=== PATIENT | male | born 1945 | race Caucasian/White ===

== ENCOUNTER 2018-12-28 07:52 | Day surgery (SDC) | payer OTHER ==
[2018-12-27 12:02] VITALS: BMI 27.6
[2018-12-28] MEDS ORDERED: DESFLURANE GAS 240 ML BOTTLE IH ONE (09:13)
[2018-12-28] MEDS ORDERED: SEVOFLURANE 250 ML BTL ONE (09:13)
[2018-12-28] MEDS ORDERED: DEXAMETHASONE SOD PHOSPHATE/PF 10 MG/ML SDV ONE (09:23)
[2018-12-28] MEDS ORDERED: ROPIVACAINE HCL 0.5% 30ML VIAL ONE (09:23)
--- NOTE | 2018-12-28 09:23 | HP ---
Satellite [facility] - Chief Complaint History of Present Illness: c/O Pain in right groin, has right inguinal hernia, incarcerated History Source: Patient Limitations to Obtaining History: No Limitations - Past Medical History Allergies/Adverse Reactions: Allergies Allergy/AdvReac Type Severity Reaction Status Date / Time No Known Drug Allergies Allergy Verified 12/28/18 08:51 Musculoskeletal: Yes: Other (S/P Bilateral knee replacement) - Current Medications Current Medications: Home Medications Medication Instructions Recorded Spencer Oil/Wadsworth-3 Fatty Acids 1 each PO TID #0 capsule 12/14/13 [Fish Oil 500 mg Softgel] Brimonidine Tartrate/Timolol 5 ml OU BID 12/27/18 [Combigan Eye Drops] Netarsudil Mesylate [Rhopressa] 2.5 ml OU HS 12/27/18 Multiple Supplements 12/28/18 Satellite Physical Exam - Physical Examination Vital Signs: Vital Signs Period Temp Pulse Resp BP Sys/Blackmon Pulse Ox Last 24 Hr 97.6 F 67 16 115/65 97 General Appearance: Well Nourished ENT: Clear Lung: Clear to auscultation Heart: Regular rate & rhythm Breasts: Soft Abdomen: Soft, Other (Swelling in right groin, painful on reduction. Incarcerated right inguinal hernia) Extremities: No edema Satellite Impression/Plan - Impression/Plan Impression: Incarcerated right inguinal hernia.. Plan : Repair of incarcerated right inguinal hernia with mesh. Procedure is explained with risks , benefits and complications. Operative Procedure: Repair of incarcerated right inguinal hernia with mesh. Date to be Performed: 12/28/18
[2018-12-28] MEDS ORDERED: MIDAZOLAM HCL 2 MG/2 ML SINGLE DOSE VIAL ONE ×2 (09:25)
--- NOTE | 2018-12-28 09:25 | HP ---
History & Physical Update - History History: No Change - Physical Physical: No Change - Assessment Assessment: No Change - Plan Plan: No Change Currently as noted:: Repair of incarcerated right inguinal hernia with mesh.
[2018-12-28] MEDS ORDERED: PROPOFOL 20 ML ONE (09:48)
[2018-12-28] MEDS ORDERED: fentaNYL CITRATE 250 MCG/5 ML VIAL ONE (09:49)
[2018-12-28] MEDS ORDERED: ceFAZolin SODIUM 1 GM VIAL IVPB ONE (10:06)
[2018-12-28] MEDS ORDERED: DEXAMETHASONE SOD PHOSPHATE 4 MG/1 ML VIAL ONE (11:02)
[2018-12-28] MEDS ORDERED: KETOROLAC TROMETHAMINE 30 MG/1 ML VIAL ONE (11:02)
[2018-12-28] MEDS ORDERED: GLYCOPYRROLATE 0.2 MG/1 ML VIAL ONE ×2 (11:03)
[2018-12-28] MEDS ORDERED: NEOSTIGMINE METHYLSULFATE 0.5 MG/ML - 10 ML MDV ONE (11:03)
--- NOTE | 2018-12-28 11:27 | OP ---
Operative Note - Note: Operative Date: 12/28/18 Pre-Operative Diagnosis: Incarcerated right inguinal hernia. Operation: Repair of incarcerated right inguinal hernia with plug and mesh. Findings: Large indirect and direct hernia. Post-Operative Diagnosis: Same as Pre-op Surgeon: Whit Lerner Bulb Planter: Mack Rose Anesthesia: General Specimens Removed: Indirect Hernial sac Estimated Blood Loss (mls): 5 Operative Report Dictated: Yes
--- NOTE | 2018-12-28 11:48 | SURG ---
Surgery Petrography Teacher Note Petrography Teacher: Mack Rose PA-C Date of Service: 12/28/18 Diagnosis: Incarcerated right inguinal hernia. Procedure: Repair of incarcerated right inguinal hernia with plug and mesh. I was present for the entirety of the operative procedure. For further detail, please refer to operative report.
[2018-12-28] MEDS ORDERED: ONDANSETRON 4 MG/2 ML VIAL IVPUSH PRN (12:34)
[2018-12-28] MEDS ORDERED: oxyCODONE HCL 5 MG TABLET PO PRN (12:34)
[2018-12-28] MEDS ORDERED: LACTATED RINGERS SOLUTION 1,000 ML IV SCH (12:45)
--- NOTE | 2018-12-28 12:47 | OP ---
DATE OF OPERATION: 12/28/2018 PREOPERATIVE DIAGNOSES: Incarcerated right inguinal hernia. POSTOPERATIVE DIAGNOSES: Incarcerated right inguinal hernia both direct and indirect type. OPERATION: Repair of incarcerated right inguinal hernia with plug and mesh. SURGEON: Douglas Lerner MD TEACHER THEATER ARTS: MALLORY Crawford, and medical student ANESTHESIA: General anesthesia. OPERATIVE DESCRIPTION: This 73-year-old man had a large right inguinal hernia which was painful for the past 2 years. He had repair of left inguinal hernia in the past. Patient was brought in for repair of right inguinal hernia. The hernia was incarcerated and patient experienced pain and difficulty reducing it.. Consent was obtained, and risks, benefits, and complications were discussed with the patient. Patient was given general anesthesia along with regional block. The right groin was painted and draped. Time out was called. Incision was made in the right groin along the skin crease which was deepened through the skin, subcutaneous tissue, Brant fascia, and external oblique aponeurosis. The cord structures were identified and isolated around a half inch Zoltan drain. The ilioinguinal nerve and iliohypogastric nerves were identified and preserved throughout the procedure. Patient had a large direct defect with fat pushing through defect in the transversalis fascia just medial to the ring and lateral to the pubic tubercle. The cord structures were then exposed by incising the internal and external spermatic muscle and fascia. There was an indirect sac which was from the cord structures all the way to the internal ring and properitoneal fat. The strap was transfixed with 2-0 Vicryl sutures and divided below the internal ring. Specimen was sent to Pathology. This also divided the internal ring. The posterior wall of the transversalis fascia was then from the properitoneal fat. A large plug was then inserted through the internal ring and placed behind the transversals fascia. This was anchored with two 2-0 Prolene sutures 1 above and medial to the internal ring and second above and lateral to the internal ring. The Prolene suture was passed through the internal oblique, and transversus abdominal muscle brought through the internal ring outwardly over the mesh and was reintroduced through the internal ring and brought out through the transversalis fascia and muscle and the internal oblique muscle and fascia. Once these sutures were placed, the mesh was placed into the internal ring and placed behind the transversalis fascia pushing the properitoneal fat cephalad. The transversalis fascia was then plicated with 2-0 Prolene sutures to prevent protrusion of the properitoneal fat. A large mesh was then placed over the posterior inguinal canal and anchored at the level of the pubic tubercle with 2-0 Prolene sutures. The inferior leaf of the mesh was placed over the shelving edge of the inguinal ligament and anchored with the Versatac tacking device. The superior leaf of the mesh was placed over the internal oblique muscle, and 2-0 Prolene suture holding the plug was brought through the mesh, and the knot was fastened. Thus, the plug and the mesh were connected to each other over the internal oblique and transversus abdominis muscle and fascia sandwiched in between. The lateral Prolene suture was brought through both limbs of the mesh as it came around the internal ring thus creating a new internal ring. The repair was adequately performed. A few extra tackers were placed to anchor the mesh over the internal oblique muscle. The repair was adequately performed. The hemostasis was satisfactory at the completion of the procedure. The wound was irrigated. Marcaine 0.5% was injected into the wound and along the ilioinguinal nerve and iliohypogastric nerves. Brant fascia was approximated with buried, interrupted 2-0 Vicryl sutures. Subcutaneous fat was approximated with buried, interrupted 3-0 Vicryl sutures. Skin approximated with continuous 4-0 Monocryl Biosyn sutures in a running subcuticular fashion. Estimated blood loss was less than 10 mL. Sponge count, instrument count was correct. Dermabond was applied across the skin edges. Patient tolerated the procedure well, was extubated, and returned to the recovery room in satisfactory and stable condition. Hesham [id number] MTDD
[2018-12-28 13:23] VITALS: TEMP 97.8
[2018-12-28 15:34] VITALS: BP 158/80; PULSE 80
--- NOTE | 2019-01-01 14:04 | PATH ---
Surgical Pathology Report Patient Name: ANNETTE BEDOYA JR. [facility]. Rec. #: [id number] /Age/Gender: 1945 (Age: 73) / M Account: [id number] Location: [facility] SURGICAL Taken: 12/28/2018 Received: 12/28/2018 Reported: 01/01/2019 Physicians: Alejandro Lerner M.D. Specimen(s) Received INGUINAL HERNIA SAC, RIGHT Clinical History Incarcerated right inguinal hernia Final Diagnosis INGUINAL HERNIA SAC, RIGHT, REPAIR OF INCARCERATED HERNIA: HERNIA SAC. Electronically Signed Jill Jones M.D. Gross Description Received in formalin labeled "inguinal hernia sac right," is a 2.7 x 1.9 x 1.0 cm portion of patel bella fibromembranous tissue, consistent with a hernia sac. A help desk representative section is submitted in one cassette. /12/31/201812/31/2018
== END 2018-12-28 15:44 | disposition home or self-care (01) ==
LOC: JASU-SURG 07:52
PROVIDERS: ATTEND Specialist
PROC: 0YU50JZ Supplement Right Inguinal Region with Synthetic Substitute, Open Approach (ICD-10-PCS; principal; 2018-12-28 09:30)
DX: K40.30 Unilateral inguinal hernia, with obstruction, without gangrene, not specified as recurrent (principal)
CPT/HCPCS: 88302-TC; 94760

== ENCOUNTER 2024-05-30 04:22 | Day surgery (SDC) | payer OTHER ==
[2024-04-30 11:12] VITALS: BMI 28.1
[~2024-05-30 04:22] MED LIST: ACETAMINOPHEN 500 MG TABLET (FP) PO PRN
[2024-05-30] MEDS ORDERED: BUPIVACAINE HCL/PF 0.75% 10 ML VIAL ONE (07:22)
[2024-05-30] MEDS ORDERED: LIDOCAINE HCL/PF 1% SDV 5ML VIAL ONE (07:23)
[2024-05-30] MEDS: LIDOCAINE 1% P/F 10 MG/ML VIAL PNB ONE (08:55)
[2024-05-30] MEDS: BUPIVACAINE HCL/PF 0.75% 10 ML VIAL PNB ONE (08:56)
[2024-05-30 09:13] VITALS: BP 170/86; PULSE 69; RESP 16; TEMP 98.2
== END 2024-05-30 09:51 | disposition home or self-care (01) ==
LOC: JASU-SURG 04:22
PROVIDERS: ATTEND Pain Medicine Pain Medicine
PROC: 3E0T33Z Introduction of Anti-inflammatory into Peripheral Nerves and Plexi, Percutaneous Approach (ICD-10-PCS; 2024-05-30)
PROC: 3E0T3BZ Introduction of Anesthetic Agent into Peripheral Nerves and Plexi, Percutaneous Approach (ICD-10-PCS; principal; 2024-05-30 08:30)
DX: M47.816 Spondylosis without myelopathy or radiculopathy, lumbar region (principal)
CPT/HCPCS: 76000-TC-FY

== ENCOUNTER 2024-06-27 04:03 | Day surgery (SDC) | payer OTHER, BC ==
[2024-06-26 12:22] VITALS: BMI 28.1
[2024-06-27] MEDS ORDERED: BUPIVACAINE HCL/PF 0.75% 10 ML VIAL ONE (07:47)
[2024-06-27] MEDS ORDERED: LIDOCAINE HCL/PF 1% SDV 5ML VIAL ONE (07:48)
[2024-06-27] MEDS: LIDOCAINE HCL 1% PRESERVATIVE FREE - 30ML VIAL IJ ONE (09:22)
[2024-06-27] MEDS: BUPIVACAINE HCL/PF 0.75% 10 ML VIAL NR ONE (09:25)
[2024-06-27 09:42] VITALS: BP 138/68; PULSE 61; RESP 16; TEMP 97.3
[2024-06-27] MEDS ORDERED: ACETAMINOPHEN 500 MG TABLET (FP) PO PRN (11:57)
== END 2024-06-27 10:02 | disposition home or self-care (01) ==
LOC: JASU-SURG 04:03
PROVIDERS: ATTEND Pain Medicine Pain Medicine
PROC: 3E0T3BZ Introduction of Anesthetic Agent into Peripheral Nerves and Plexi, Percutaneous Approach (ICD-10-PCS; principal; 2024-06-27 08:30)
DX: M47.816 Spondylosis without myelopathy or radiculopathy, lumbar region (principal)
CPT/HCPCS: 76000-TC-FY

== ENCOUNTER → 2024-07-25 | Day surgery (SDC) | payer OTHER ==
[2024-07-24 09:31] VITALS: BMI 26.6
[~2024-07-25] MED LIST changes: +BUPIVACAINE HCL/PF 0.75% 10 ML VIAL ONE; +DEXAMETHASONE SOD PHOSPHATE 10 MG/1 ML VIAL ONE; +LIDOCAINE HCL/PF 2% SDV 5ML VIAL ONE
[2024-07-25 07:20] VITALS: TEMP 98.2
[2024-07-25] MEDS: LIDOCAINE HCL 2% (50ML VIAL) NR ONE ×2 (08:55)
[2024-07-25] MEDS: LIDOCAINE HCL 1% PRESERVATIVE FREE - 30ML VIAL IJ ONE ×2 (08:55)
[2024-07-25] MEDS: BUPIVACAINE HCL/PF 0.75% 10 ML VIAL NR ONE ×2 (09:08)
[2024-07-25] MEDS: DEXAMETHASONE SOD PHOSPHATE 10 MG/1 ML VIAL IVPUSH ONE ×2 (09:08)
[2024-07-25 09:25] VITALS: BP 160/70; PULSE 68; RESP 18
== END | disposition home or self-care (01) ==
LOC: JASU-SURG 04:02
PROVIDERS: ATTEND Pain Medicine Pain Medicine
PROC: 015B3ZZ Destruction of Lumbar Nerve, Percutaneous Approach (ICD-10-PCS; principal; 2024-07-25 08:45)
DX: M47.816 Spondylosis without myelopathy or radiculopathy, lumbar region (principal)
CPT/HCPCS: 76000-TC-FY; J1100

== ENCOUNTER 2024-08-22 04:07 | Day surgery (SDC) | payer OTHER, BC ==
[2024-08-21 11:39] VITALS: BMI 26.6
[2024-08-22] MEDS ORDERED: LIDOCAINE HCL/PF 1% SDV 5ML VIAL ONE (07:11)
[2024-08-22] MEDS ORDERED: DEXAMETHASONE SOD PHOSPHATE 10 MG/1 ML VIAL ONE (07:11)
[2024-08-22] MEDS ORDERED: LIDOCAINE HCL/PF 2% SDV 5ML VIAL ONE (07:11)
[2024-08-22] MEDS ORDERED: BUPIVACAINE HCL/PF 0.75% 10 ML VIAL ONE (07:11)
[2024-08-22 07:36] VITALS: RESP 18
[2024-08-22 08:51] VITALS: BP 145/78; PULSE 64; TEMP 97.8
[2024-08-22] MEDS ORDERED: ACETAMINOPHEN 500 MG TABLET (FP) PO PRN (09:05)
== END 2024-08-22 09:10 | disposition home or self-care (01) ==
LOC: JASU-SURG 04:07
PROVIDERS: ATTEND Pain Medicine Pain Medicine
PROC: 015B3ZZ Destruction of Lumbar Nerve, Percutaneous Approach (ICD-10-PCS; principal; 2024-08-22 09:00)
DX: M47.816 Spondylosis without myelopathy or radiculopathy, lumbar region (principal)
CPT/HCPCS: 76000-TC-FY; J1100

== ENCOUNTER 2024-11-15 04:03 | Day surgery (SDC) | payer OTHER, BC ==
[2024-10-30 11:31] VITALS: BMI 27.3
[2024-11-15 06:22] VITALS: RESP 16
[2024-11-15] MEDS ORDERED: LIDOCAINE HCL/PF 2% SDV 5ML VIAL ONE (07:11)
[2024-11-15] MEDS ORDERED: LIDOCAINE HCL/PF 1% SDV 5ML VIAL ONE (07:11)
[2024-11-15] MEDS ORDERED: DEXMEDETOMIDINE HCL 200 MCG/2 ML IVPB ONE (07:23)
[2024-11-15] MEDS ORDERED: PHENYLEPHRINE HCL 10 MG/1 ML SINGLE DOSE VIAL ONE (07:33)
[2024-11-15] MEDS ORDERED: SUCCINYLCHOLINE CHLORIDE 200 MG/10 ML SYRINGE ONE (07:43)
[2024-11-15] MEDS ORDERED: MIDAZOLAM HCL 2 MG/2 ML SINGLE DOSE VIAL ONE (08:08)
[2024-11-15] MEDS: ceFAZolin SODIUM 1 GM VIAL IVPB ONE (08:21)
[2024-11-15] MEDS: LIDOCAINE HCL/PF 2% SDV 5ML VIAL SQ ONE ×2 (08:22)
[2024-11-15] MEDS: LIDOCAINE HCL 1% PRESERVATIVE FREE - 30ML VIAL IJ ONE ×2 (08:22)
[2024-11-15 11:25] VITALS: BP 112/81; PULSE 75; TEMP 97.8
[2024-11-15] MEDS ORDERED: ACETAMINOPHEN 500 MG TABLET (FP) PO PRN (15:22)
== END 2024-11-15 11:55 | disposition home or self-care (01) ==
LOC: JASU-SURG 04:03
PROVIDERS: ATTEND Pain Medicine Pain Medicine
PROC: 015R3ZZ Destruction of Sacral Nerve, Percutaneous Approach (ICD-10-PCS; principal; 2024-11-15 08:00)
DX: M54.51 Vertebrogenic low back pain (principal)
CPT/HCPCS: 76000-TC-FY